=== PATIENT | female | born 1980 | race Hispanic/Latino ===

== ENCOUNTER 2019-01-23 08:49 | Day surgery (SDC) | payer BC ==
[2019-01-23 09:49] LABS: Basophils # (Auto) 0.1 K/mm3 (0.0-0.1); Basophils % (Auto) 1.4 % (0.0-1.8); Eosinophils # (Auto) 0.1 K/mm3 (0.0-0.4); Eosinophils % (Auto) 1.8 % (0.0-4.3); Hemoglobin 13.6 gm/dl (10.1-14.3); Lymphocytes # (Auto) 2.1 K/mm3 (1.2-5.4); Lymphocytes % (Auto) 36.3 % (13.4-35.0); Mean Corpuscular HGB Conc 34 % (30-34); Mean Corpuscular Volume 91 fl (79-97); Monocytes # (Auto) 0.4 K/mm3 (0.0-0.8); Monocytes % (Auto) 7.3 % (0.0-7.3); Platelet Count 346 K/mm3 (140-440); Red Blood Count 4.37 M/mm3 (3.65-5.03)
[2019-01-23] MEDS ORDERED: NACL 0.9% 500 ML 500 ML IV SCH (10:00)
[2019-01-23 10:11] LABS: INR 0.92 (0.87-1.13)
[2019-01-23 10:17] LABS: BUN/Creatinine Ratio 26; Blood Urea Nitrogen 18 mg/dL (7-17); Calcium 9.3 mg/dL (8.4-10.2); Hemolysis Index 24; Partial Thromboplastin Time 29.3 Sec. (24.2-36.6)
--- NOTE | 2019-01-23 10:18 | Short Stay Summary ---
Short Stay Documentation Date of service: 01/23/19 - History Principal diagnosis: Venous compression Past Medical History: other (venous hypertension, thoracic outlet syndrome) Social history: no significant social history - Allergies and Medications Current Medications: Allergies adhesive tape Adverse Reaction (Verified 01/23/19 09:10) Rash ciprofloxacin [From Cipro] Adverse Reaction (Verified 01/23/19 09:10) Shortness of Breath Sulfa (Sulfonamide Antibiotics) Adverse Reaction (Verified 01/23/19 09:10) Rash Home Medications Medication Instructions Recorded Confirmed Last Taken Type Atenolol [Tenormin] 25 mg PO DAILY 01/23/19 01/23/19 01/22/19 History 25mg Atomoxetine HCl 60 mg PO DAILY 01/23/19 01/23/19 01/22/19 History 60mg Buspirone HCl [busPIRone] 15 mg PO HS 01/23/19 01/23/19 01/22/19 History 15mg Guanfacine HCl [Guanfacine HCl ER] 1 mg PO HS 01/23/19 01/23/19 01/22/19 History 1mg [place]-3/Dha/Epa/Fish Oil [Fish Oil 1 tab PO DAILY 01/23/19 01/23/19 01/22/19 History EC 1,200 mg Softgel] 1 cap Spironolactone [Aldactone] 50 mg PO BID 01/23/19 01/23/19 01/22/19 History 50mg clonazePAM [KlonoPIN] 0.5 mg PO PRN PRN 01/23/19 01/23/19 01/23/19 06:30 History Active Medications Sodium Chloride (Nacl 0.9% 500 Ml) 500 mls @ 50 mls/hr IV DIRECT MICHELLE - Physical exam General appearance: no acute distress HEENT: Atraumatic Lungs: Normal air movement Breasts: deferred Heart: Regular rate Gastrointestinal: normal Female Genitourinary: deferred Rectal Exam: deferred Extremities: abnormal (BLEedema and bulging varicose veins) Neurological: Normal gait, Normal speech - Brief post op/procedure progress note Date of procedure: 01/23/19 Pre-op diagnosis: Venous compression Post-op diagnosis: same Procedure: BLE venogram, IVUS, stent placement Anesthesia: local Surgeon: NORMA MORAN Estimated blood loss: minimal Pathology: none Condition: stable - Disposition Condition at discharge: Good Disposition: DC-[id number] TO HOME OR SELFCARE Short Stay Discharge Plan Activity: advance as tolerated Weight Bearing Status: Weight Bear as Tolerated Diet: regular Wound: keep clean and dry, per your surgeon's advice Follow up with: AJ TOLENTINO MD [Primary Care Provider] - 7 Days
[2019-01-23] MEDS ORDERED: ZOFRAN IV ONE (11:00)
[2019-01-23] MEDS ORDERED: HEPARIN/NS 5000 UNIT/500ML(CATH LAB) 1,000 ML IR ONE (11:20)
[2019-01-23] MEDS ORDERED: TORADOL ONE (11:20)
[2019-01-23] MEDS: SUBLIMAZE ONE ×3 (11:59→12:16)
[2019-01-23] MEDS: VERSED ONE ×3 (11:59→12:25)
[2019-01-23] MEDS: XYLOCAINE 2% INFILTRATI ONE ×2 (12:02→12:04)
--- NOTE | 2019-01-23 12:46 | Operative Report ---
Operative Report Operative Report: Exam: Bilateral lower extremity venogram, intravascular ultrasound, venoplasty with stent placement Clinical indication: Patient with a history of extrinsic compression of common iliac veins, bilateral lower extremity venous hypertension including swelling and bulging varicose veins Date: 01/23/2019 Procedure: Following an explanation of the risks, benefits and alternatives; written informed consent was obtained. The patient was brought to the angiographic suite and placed in supine position on the examination table. Initial ultrasound evaluation of her legs demonstrated patent proximal femoral veins bilaterally. Patient's legs were prepped and draped in the usual sterile fashion. One percent lidocaine was used for anesthesia. Under ultrasound guidance, the proximal right femoral vein was cannulated with a 7 cm 18-gauge needle. A 0.035 guidewire was advanced centrally. The needle was removed and a 5 [place] sheath placed. Access to the left proximal femoral vein was obtained in a similar fashion and an additional 5 [place] sheath placed. Venography was performed first through the sheath on the right followed by the sheath on the left. This demonstrated significant extrinsic compression of the common iliac vein on the right as well as left proximally. Decision was made to further evaluate with intravascular ultrasound. The sheaths were upsized over the guidewires to 10 [place] sheaths. Intravascular ultrasound was first performed through first the right sheath followed by the left sheath. Imaged vessels in the IVC, right common iliac vein, right external iliac vein, right common femoral vein, left common iliac vein, left external iliac vein and left common femoral vein. There is 70% stenosis involving the right common iliac vein just distal to its origin with prestenotic dilatation. There is 80% stenosis involving the left common iliac vein with prestenotic dilatation. A 16 mm x 140 mm Venovo stent was advanced through the right sheath. A 16 mm x 140 mm Venovo stent was advanced through the left sheath. The stents were deployed in kissing fashion extending from the bifurcation into the external iliac veins. The stents were then seated using 14 mm balloons insufflated at multiple locations to 5 marti. Post stent deployment imaging demonstrated a reduction of the stenosis to less than 10%. There is brisk flow throughout the pelvis. The guidewires and sheaths were removed and hemostasis achieved using manual compression. Sterile dressings were then applied. The patient tolerated the procedure well. There were no immediate post procedure complications. Conscious sedation was performed under the guidance of radiologic nursing. Continuous cardiopulmonary monitoring was utilized. Impression: 1) Bilateral lower extremity venogram demonstrating significant compression of the bilateral common iliac veins. 2) Iintravascular ultrasound of the IVC, bilateral common iliac veins, bilateral external iliac veins and bilateral common femoral veins demonstrating 70% stenosis involving the proximal right common iliac vein with prestenotic dilatation and 80% stenosis involving the proximal left common iliac vein with prestenotic dilatation. 3) Tr is eatment of these above lesions with venoplasty and stent placement as described with a residual 10% stenosis.
[2019-01-23] MEDS ORDERED: PERCOCET 5/325 PO ONE (12:54)
[2019-01-23 14:38] VITALS: BP 101/64
== END 2019-01-23 15:05 | disposition home or self-care (01) ==
LOC: CATHLABREC 08:49
PROVIDERS: ATTEND Radiology Diagnostic Radiology
DX: I87.1 Compression of vein (principal); I87.303 Chronic venous hypertension (idiopathic) without complications of bilateral lower extremity; F41.9 Anxiety disorder, unspecified; Z88.2 Allergy status to sulfonamides; Z79.899 Other long term (current) drug therapy; Z87.891 Personal history of nicotine dependence; Z98.51 Tubal ligation status; Z98.890 Other specified postprocedural states; Z80.8 Family history of malignant neoplasm of other organs or systems; Z79.01 Long term (current) use of anticoagulants; Z88.8 Allergy status to other drugs, medicaments and biological substances
CPT/HCPCS: 36415; 37238; 37239; 37252; 37253; 75822; 76937; 80048; 85025; 85610; 85730; 96374; 99156; 99157; C1725; C1753; C1769; C1894; J1644; J1885; J2250; J2405; J3010; J7040; Q9967